=== PATIENT | female | born 1990 | race Caucasian/White ===

== ENCOUNTER 2023-11-18 07:00 | Day surgery (SDC) | payer BC, SELFPAY ==
[2023-11-18] VITALS (8 sets, daily range): BP systolic 110–151; BP diastolic 70–91; PULSE 50–65; RESP 15–16; TEMP 36.4–36.8; O2SAT 97–100; BMI 28.5
--- NOTE | 2023-11-18 06:22 | W.ANESPRE ---
General Info Date of Service Date Performed: 11/18/23 Height: 5 ft 4 in Weight: 75.296 kg Body Mass Index (BMI): 28.5 Surgical Procedure: Operation Date: 11/18/23 08:25 Proposed Procedure Side Surgeon p Septoplasty Trey Barraza MD Meds Allergies and Home Medications Allergies Allergy/AdvReac Type Severity Reaction Status Date / Time ibuprofen AdvReac Other (See Unverified 11/18/23 07:27 Comment) Home Medication Medication Instructions Recorded fluticasone propionate 50 1 spray intranasal DAILY 07/11/23 mcg/actuation nasal spray,suspension (Flonase Allergy Relief) Current Visit Medications: Current Medications Generic Name Dose Route Start Last Admin Trade Name Freq PRN Reason Stop Dose Admin Ringer's Solution 1,000 mls @ 150 mls/hr 11/18/23 06:00 IV 11/18/23 23:59 INFUSION VANESSA Tranexamic Acid/Sodium Chloride 1,000 mg in 100 mls @ 600 mls/hr 11/18/23 06:00 IVPB 11/18/23 23:59 PREOP VANESSA Cefazolin Sodium/Dextrose 1 gm in 50 mls @ 100 mls/hr 11/18/23 06:00 Ancef Duplex IVPB 11/18/23 23:59 PREOP VANESSA IV Miscellaneous Supplies 1 each 11/18/23 06:00 Iv Access IV 11/18/23 23:59 DIRECTED VANESSA Sodium Chloride 0 ml 11/18/23 06:00 Normal Saline Flush 10 Ml Syr IV 11/18/23 23:59 PRN PRN Sodium Chloride 0 ml 11/18/23 06:00 Normal Saline 10 Ml Vial IJ 11/18/23 23:59 DIRECTED PRN Sterile Water 0 ml 11/18/23 06:00 Water,Injection,Sterile 10 Ml Vial IJ 11/18/23 23:59 DIRECTED PRN PFSH Active Problems Active Problems: Problem Status Onset Code Deviated nasal septum J34.2 Medical History Medical History (Updated 11/15/23 @ 12:49 by Jah Louise) Sudden onset of severe abdominal pain Right knee pain Pectus carinatum Palpitations pt. states related Muscle tension pain Left ovarian cyst Irregular periods Intractable abdominal pain Internal derangement of knee Generalized hyperhidrosis Fracture of femur Constipation Carpal tunnel syndrome of right wrist Allergic reaction to bee sting ADHD Surgical History Surgical History History of femoral hernia repair History of carpal tunnel release Hx of colonoscopy Tobacco Smoking/Tobacco Use Status: Former Tobacco Use Alcohol Alcohol Intake: current Alcohol intake frequency: holidays/special occasions only Substance Use Substance use: Never Substance use type: does not use Vital Signs and Lab Results Vital Signs Most Recent Vital Signs in EMR: Temp Pulse Resp BP Pulse Ox 36.8 C 65 16 129/82 100 11/18/23 07:28 11/18/23 07:28 11/18/23 07:28 11/18/23 07:28 11/18/23 07:28 Lab Results Blood Type / Crossmatch: No Data to Display Complete Blood Count: No Data to Display Complete Metabolic Panel: No Data to Display Liver Function Panel: No Data to Display Coagulation Panel: No Data to Display Cardiac Panel: No Data to Display Arterial Blood Gas: No Data to Display Venous Blood Gas: No Data to Display Pancreas Panel: No Data to Display Thyroid Panel: No Data to Display Infectious Disease: No Data to Display Blood Cultures: No Data to Display Toxicology Panel: No Data to Display Panel: No Data to Display Anesthesia Assessment and Plan Anesthesia History Personal History: PONV Family History: No Family History of Anesthesia Complications Exercise Tolerance Exercise Tolerance: Metabolic Equivalents>4 Cardiac & Pulmonary Exam Cardiac Exam: Normal S1/S2 Heart Sounds Pulmonary Exam: Clear Bilateral Breath Sounds Implantable Cardiac Device Does patient have a Pacemaker or an ICD?: No Airway Exam Known Difficult Airway: No Mallampati Class: 2 Mouth Opening: Normal (> 3cm) Thyromental Distance: Greater than 3 cm Neck Range of Motion: Full ROM Neck Circumference: Normal Teeth Condition: Normal Dentition ASA Classification ASA Score: ASA 2 Emergency Case?: No NPO Status NPO Status: NPO Clears >2 hours, Solids >8 hours Status Status: Negative HCG Anesthesia Plan Resuscitation Status: Full Code Anesthesia Technique: General Anesthesia Airway Planned: Endotracheal Tube Monitors Used: Standard Monitors Preoperative Comments:: 33 yo female with deviated septum for septoplasty. Sig PMHx: palpitations during preg, ADHD, former smoker, occ EtOH. denies major.
[2023-11-18] MEDS: Lactated Ringers 1,000 ML 150 ML IV (07:42)
--- NOTE | 2023-11-18 08:12 | W.PM.DSUDISC ---
Date of service: 11/18/23 Time of Service: 08:13 Discharge Plan Disposition Patient Disposition: Home Condition: Good Discharge Details Reason For Visit: Septoplasty Attending Provider: Trey Barraza Primary Care Provider: Cheng Paris Home Meds and New Rx's Prescriptions: No Action fluticasone propionate [Flonase Allergy Relief] 50 mcg/actuation spray,suspension 1 spray intranasal DAILY Rx Instructions: administer into each nostril Discharge Instructions Additional Instructions: My cell phone number is [phone]. Please call with any questions or concerns. If you feel it is an emergency and you are unable to reach me, please call 911 or proceed to the emergency room Stand Alone Forms: ENT-Lisa InstrSophie Barraza Referrals: Trey Barraza MD [ [facility] STAFF PHYSICIAN] - ( (11/21/2023), 8 AM. [facility]) Discharge Orders Discharge Orders: Discharge Order (Routine); Ordered 11/18/23 Ordered By: Trey Barraza
--- NOTE | 2023-11-18 08:14 | W.PM.OP ---
Date of service: 11/18/23 Time of Service: 09:33 Operative Note Operative Note DATE OF PROCEDURE: 11/18/23 PRE-OP DIAGNOSIS: Deviated nasal septum with chronic nasal obstruction POST-OP DIAGNOSIS: same PROCEDURE: Septoplasty SURGEON: Trey Barraza ANESTHESIA TYPE: General LMA/ETT Refer to Anesthesia Record ESTIMATED BLOOD LOSS: 20 PATHOLOGY: other (Septal cartilage and bone) COMPLICATIONS: None Patient was transported to: PACU Patient's condition: stable Implants: Sanders splint Indications: Patient with the above problem. This is proven medically recalcitrant and chronic. Options were explained to the patient regarding further management. She elected undergo the above procedure. Consent was filled out and signed prior to the procedure. All questions were answered. H&P was reviewed. There have been no changes. Findings: Markedly deviated nasal septum, resulting in within 90% obstruction of the left nasal vault. Procedure Description: After obtaining an adequate level of general endotracheal anesthesia the patient was positioned in supine position and prepped and draped in appropriate fashion. 1% lidocaine with 1/100,000 epinephrine was injected in the anterior septum bilaterally as well as into the inferior turbinates bilaterally. Cocaine soaked nasal pledgets were placed along the nasal cavity bilaterally and left for 5 minutes at which point gently removed and the left-sided hemitransfixion incision was made along the anterior tip of the quadrangular cartilage. Submucoperichondrial and submucoperiosteal planes were then developed on the left side of the nasal septum including over a large spur along the floor anteriorly, which included the displaced quadrangular cartilage which extended extensively to the left. A Bois D Arc knife was then used to incise the quadrangular cartilage anteriorly leaving a strong dorsal and columellar strut and also using the same knife to incise the quadrangular cartilage along the maxillary crest so as to reduce the redundancy. Submucoperichondrial and submucoperiosteal planes were then developed along the right side of the nasal septum posteriorly. Once been accomplished bilaterally, with no injury to the overlying mucosa a swivel knife was used to remove the redundant posterior quadrangular cartilage and then Hans-Hogan's were used to remove the deviated bony nasal septum posteriorly. A 4 mm chisel was then used along the floor to remove a large bony spur that extends to the left. This extended off of the maxillary crest. Following this, the quadrangular cartilage was repositioned anteriorly, revealing that the deviation to the left had been corrected and the quadrangular cartilage appeared to want to sit in midline. Compression of the nasal tip did not cause displacement of the quadrangular cartilage to the left or the right. Nasal airway was examined bilaterally, and the [place] elevator was used to lateralize the inferior turbinates. Once been accomplished the [place] elevator could be passed freely from the anterior nares to the posterior pharynx without restriction bilaterally. The wound was inspected for relative hemostasis and a small rent was made posteriorly on the right through the mucosa to allow any bloody discharge to escape. A 4-0 chromic suture was used to approximate the edges the hemitransfixion incision and then Sanders splints were positioned along the nasal septum bilaterally and sutured into place with a quilting 4.0 Prolene suture. Care was taken not to apply the Prolene suture tightly so as to avoid mucosal compromise. The nasal tip was stable at the end of the case. The columella was well supported. A mustache dressing was placed and the patient was then awakened and explained by anesthesia and taken the recovery room in stable condition. I was present throughout the entire case.
[2023-11-18] MEDS: ceFAZolin 1 GM/50 ML BAG IVPB (08:22)
[2023-11-18] MEDS: TRANEXAMIC ACID/SOD. CHL. 1,000 MG/100 ML BAG 600 MG IVPB (08:31)
[2023-11-18] MEDS: Lidocaine 1% Multi-Dose W/EPI 1/100,000 50 ML VIAL (08:44)
[2023-11-18] MEDS: Bacitracin 1 PACKET (08:44)
[2023-11-18] MEDS: Cocaine Nasal 4% 4 ML BTL (08:45)
--- NOTE | 2023-11-18 09:03 | NASALBX_PTH ---
PATIENT: Eliane Fu LOC: [facility] U#:[id number] AGE/SX: 33/F ROOM: RE11/18/[address]: Trey Barraza MD : 1990 BED: DIS: 11/18/2023 SPEC #: [id number] RECD: 11/18/23 13:05 STATUS: WILLIAMS RERui #: [id number] DIANE: 11/18/23 09:[address]: Trey Barraza DEPT: Surgical Specimen RECD BY: Anna Sharif ENTERED: 11/18/23 13:05 SP TYPE: NASALBX OTHR DR: Cheng Paris Tissues: 1 - MUCOSA, NOS Procedures: GROSS LEVEL 1 Comments: [id number]
--- NOTE | 2023-11-18 09:33 | W.PM.DSUDISC ---
Date of service: 11/18/23 Time of Service: 09:34 Discharge Plan Disposition Patient Disposition: Home Condition: Good Discharge Details Reason For Visit: Septoplasty Attending Provider: Trey Barraza Primary Care Provider: Cheng Paris Home Meds and New Rx's Prescriptions: New cephalexin 500 mg tablet 500 mg PO TID 7 Days Qty: 21 0RF Rx Instructions: Start tonight No Action fluticasone propionate [Flonase Allergy Relief] 50 mcg/actuation spray,suspension 1 spray intranasal DAILY Rx Instructions: administer into each nostril Discharge Instructions Additional Instructions: My cell phone number is [phone]. Please call with any questions or concerns. If you feel it is an emergency and you are unable to reach me, please call 911 or proceed to the emergency room Stand Alone Forms: ENT-Lisa Barraza Referrals: Trye Barraza MD [ [facility] STAFF PHYSICIAN] - ( (11/21/2023), 8 AM. [facility]) Discharge Orders Discharge Orders: Discharge Order (Routine); Ordered 11/18/23 Ordered By: Trey Barraza
[2023-11-18] MEDS: fentaNYL 100 MCG/2 ML VIAL IVP (09:40)
--- NOTE | 2023-11-18 09:47 | W.ANESPOSTOP ---
Postoperative Evaluation Date, Time and Location Date Performed: 11/18/23 Time Performed: 09:47 Patient Location: PACU Vital Signs Most Recent Imported Vital Signs: Most Recent Vital Signs Temp Pulse Resp BP Pulse Ox 36.7 C 61 16 129/73 99 11/18/23 09:29 11/18/23 09:29 11/18/23 09:29 11/18/23 09:29 11/18/23 09:29 Pain Score Most Recent Pain Score: Most Recent Pain Score Pain Level 4 11/18/23 09:29 Assessment Mental Status: Awake (Alert & Oriented to Patient Baseline) Airway and Respiratory Function: Patent airway with normal (patient baseline) respiratory exam Cardiovascular Function: Hemodynamically Stable Hydration Status: Adequately Hydrated Nausea & Vomiting: No Nausea or Vomiting Pain: Pain is Moderate or Severe Postoperative Pain Management: Pain being addressed with medication Peripheral Nerve Block: Patient did not receive a nerve block
== END 2023-11-18 10:58 | disposition home or self-care (01) ==
PROVIDERS: PCP Nurse Practitioner Family; Visit Provider Otolaryngology
PROC: (CPT 30520; principal; 2023-11-18 08:15)
DX: J34.2 Deviated nasal septum (principal); J34.89 Other specified disorders of nose and nasal sinuses
CPT/HCPCS: 30520; 81025; 88300; 88305; J0131; J0690; J1100; J2001; J2004; J2405; J2704; J3010; J3475